=== PATIENT | female | born 1990 | race Caucasian/White ===

== ENCOUNTER 2016-10-24 15:26 | Emergency (ER) | payer MEDICAID ==
[~2016-10-24] VITALS: Ht 170.2 cm; Wt 104.3 kg
[~2016-10-24 15:26] MED LIST: PREN1CAP20 PO
--- NOTE | 2016-10-24 15:28 | PD ---
HPI . Labor Chief Complaint: labor Time Seen by Provider: 15:28 Travel History International Travel<30 days: No Contact w/Intl Traveler<30days: No History of Present Illness HPI The patient presents stating that she is 36 weeks and thinks that she is in labor. She reports contractions about every 20-30 minutes. She is concerned that her water broke about an hour and a half to 2 hours ago. She states that this was not like her previous experiences with her other 2 pregnancies though. She states that there was not a gush of fluid. She just had some wetness in her panties. She subsequently presented here for evaluation. PFSH Past Medical History Hx Anticoagulant Therapy: No Anxiety: Yes Depression: Yes Cancer: No Cardiovascular Problems: No Diabetes: No Diminished Hearing: No Endocrine: No Gastrointestinal Disorders: No Genitourinary: No Headaches: No Immune Disorder: No Implanted Vascular Access Dvce: No Musculoskeletal: No Neurologic: No Psychiatric: No Reproductive: No Respiratory: No Seizures: No : 3 Para: 2 Miscarriage: 1 : 0 Past Surgical History Other Surgery: No Social History Alcohol Use: Yes (occasianal; last unknown ) Tobacco Use: Yes Substance Use: Yes (meth--last used this am (pt. thinks); marajuana occasional (can't remember)) Allergies-Medications (Allergen,Severity, Reaction): Coded Allergies: Tramadol (Verified Adverse Reaction, Unknown, upset stomach, 08/27/16) pt. denies being allergic to tramadol Reported Meds & Prescriptions Reported Meds & Active Scripts Active Prenate Mini 18-0.6-0.4-350 mg ( W/O Vit A W/ Fe Carbo) 1 Cap Cap 1 Tab PO DAILY Review of Systems Except as stated in HPI: all other systems reviewed are Neg Genitourinary: Positive: Other (contractions) Physical Exam Narrative GENERAL: Awake and alert and in no acute distress. SKIN: Warm and dry. HEAD: Atraumatic. Normocephalic. EYES: Pupils equal and round. NECK: Trachea midline. CARDIOVASCULAR: Regular rate and rhythm. RESPIRATORY: No accessory muscle use. ABDOMEN: Gravid. heart tones are present by Doppler. : Cervix is high and thin but not completely effaced. Cervix is less than fingertip open. The baby's head can be felt but is not engaged. Litmus paper stays yellow. MUSCULOSKELETAL: No obvious deformities. No edema. NEUROLOGICAL: Awake and alert. No obvious cranial nerve deficits. Motor grossly within normal limits. Normal speech. PSYCHIATRIC: Appropriate mood and affect; insight and judgment normal. Data Data Last Documented VS Vital Signs Date Time Temp Pulse Resp B/P Pulse Ox O2 Delivery O2 Flow Rate FiO2 10/24/16 15:30 98.2 121 20 143/76 98 MDM Medical Decision Making Medical Screen Exam Complete: Yes Emergency Medical Condition: Yes Differential Diagnosis Differential diagnosis includes [place] contractions versus early active labor Narrative Course Patient presents to us for possible labor. She will be transferred to [facility]. Physician Communication Physician Communication Spoke with the OB ER doctor who is expecting the patient. Diagnosis Primary Impression: Uterine contractions during Condition: Stable Charity Ashford MD October 24, 2016 15:28
[2016-10-24 15:30] VITALS: BP 143/76; PULSE 121; RESP 20; TEMP 98.2; O2SAT 98
--- NOTE | 2016-10-24 18:06 | PD ---
HPI Chief Complaint Contractions, back pain and leakage of fluid Date Seen: October 24, 2016 Travel History International Travel<30 Days: No Contact w/Intl Traveler<30Days: No Known Affected Area: No History of Present Illness HPI 26y/o at 36w1d who presents to the [facility] with reports of ?leakage of fluid at noon and contractions at that time. She denies vaginal bleeding with reports of active movements. care with [facility] no records available for review. Care complicated by: 1. 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 h/o at 36w 3. Tobacco Abuse 10-15 cigarettes per day 4. Para: 2 : 3 History Past Medical History Narrative Medical H/o IVDA, no documentation of HepC status, pt reports negative Obstetric History Obstetric History 06/08/2011 40w1d Male "Manfred" 7lb7oz 07/17/2013 36w + Male "Nicolas" 6lb3oz Past Surgical History Narrative Surgical 2016 Laparoscopic Cholecystectomy Social History Alcohol Use: No Tobacco Use: Yes (10-15 cigarettes a day) Substance Abuse: No (H/o IVDA) Allergies-Medications (Allergen,Severity, Reaction): Coded Allergies: Tramadol (Verified Adverse Reaction, Unknown, upset stomach, 08/27/16) pt. denies being allergic to tramadol Home Meds Active Scripts W/O Vit A W/ Fe Carbo (Prenate Mini 18-0.6-0.4-350 mg)1 Cap Cap1 Tab PO DAILY #30 BOTTLE Ref 11 Prov:Blanca Garcia 07/02/16 Review of Systems Except as stated in HPI: all other systems reviewed are Neg Physical Exam Vital Signs Date Time Temp Pulse Resp B/P Pulse Ox O2 Delivery O2 Flow Rate FiO2 10/24/16 15:30 98.2 121 20 143/76 98 Narrative GENERAL: Well-nourished, well-developed patient. SKIN: Warm and dry. HEAD: Normocephalic and atraumatic. EYES: No scleral icterus. No injection or drainage. ENT: No nasal drainage noted. Mucous membranes pink. Airway patent. NECK: Supple, trachea midline. No JVD. CARDIOVASCULAR: Regular rate and rhythm without murmurs, gallops, or rubs. RESPIRATORY: Breath sounds equal bilaterally. No accessory muscle use. BREASTS: Bilateral exam showed no masses , no retractions, no nipple discharge. ABDOMEN/GI: Abdomen soft, non-tender, bowel sounds present, no rebound, no guarding Gravid to 37 weeks size GENITOURINARY: External Genitalia: intact and normal in appearance BUS glands: [-] VE: 2/50/-3 Uterine Contractions: irregular FHT's: Category: 1 EXTREMITIES: No cyanosis or edema. BACK: Nontender without obvious deformity. No CVA tenderness. NEUROLOGICAL: Awake and alert. Motor and sensory grossly within normal limits. Five out of 5 muscle strength in all muscle groups. Normal speech. Data Data Vital Signs Reviewed: Yes Labs Amnisure Negative [facility] Medical Record Reviewed: No Interpretation(s) 26y/o at 36w1d who presents for evaluation of PTL with PPROM. -amnisure negative -reassuring status -no evidence of PTL Plan -d/c home -f/u for PNC as scheduled Diagnosis Diagnosis: Primary Impression: Uterine contractions during Disposition: 01 DISCHARGE HOME Condition: Stable Patient Instructions: Abdominal Pain in (ED) Elizabeth Khalil MD October 24, 2016 18:06
== END 2016-10-24 18:10 | disposition home or self-care (01) ==
LOC: PHED 15:26 → HOBED 18:10
DX: O26.93 Pregnancy related conditions, unspecified, third trimester (principal); R10.84 Generalized abdominal pain; Z3A.36 36 weeks gestation of pregnancy
CPT/HCPCS: 84112; 99282

== ENCOUNTER 2016-11-03 16:07 | Emergency (ER) | payer MEDICAID ==
[~2016-11-03] VITALS: Ht 170.2 cm; Wt 106.1 kg
--- NOTE | 2016-11-03 16:41 | PD ---
HPI Chief Complaint Non-reactive NST. Date Seen: Nov 03, 2016 (Doretha Talavera MD R2) Travel History International Travel<30 Days: No Contact w/Intl Traveler<30Days: No (Doretha Talavera MD R2) History of Present Illness HPI Patient is a 26 year old at 37-4/7 weeks gestation who presents today for non-reactive NST. She was seen by An Rowland today and found to have a non- reactive NST before being sent here. She also notes a vaginal discharge described as clear/whitish that has been getting heavier. She denies any vaginal bleeding or gush or leaking of fluid. She is having intermittent contractions. She has had decreased movement for the past 2 days. (Doretha Talavera MD R2) History Past Medical History Medical History: Denies Significant Hx (Doretha Talavera MD) Obstetric History Obstetric History s/p x2 one at term and one at 36 weeks gestation (Doretha Talavera MD R2) Past Surgical History Narrative Surgical Cholecystectomy 2015 (Doretha Talavera MD R2) Family History Family History: Negative (Doretha Talavera MD R2) Social History Alcohol Use: No Tobacco Use: Yes (1ppd) Substance Abuse: No (Doretha Talavera MD R2) Allergies-Medications (Allergen,Severity, Reaction): Coded Allergies: Tramadol (Verified Adverse Reaction, Unknown, upset stomach, 11/03/16) pt. denies being allergic to tramadol Home Meds Active Scripts W/O Vit A W/ Fe Carbo (Prenate Mini 18-0.6-0.4-350 mg)1 Cap Cap1 Tab PO DAILY #30 BOTTLE Ref 11 Prov:Blanca Garcia 07/02/16 Review of Systems Except as stated in HPI: all other systems reviewed are Neg General / Constitutional: No: Fever, Chills Eyes: No: Visual changes HENT: No: Headaches Cardiovascular: No: Chest Pain or Discomfort Respiratory: No: Short of Breath Gastrointestinal: No: Nausea, Vomiting, Abdominal Pain Genitourinary: Discharge, No: Pelvic Pain, Vaginal Bleeding Neurologic: No: Headache Psychiatric: No: Substance Abuse (Sadaf,Doretha E MD R2) Physical Exam Narrative GENERAL: Well-nourished, well-developed patient. SKIN: Warm and dry. HEAD: Normocephalic and atraumatic. EYES: No scleral icterus. No injection or drainage. ENT: No nasal drainage noted. Mucous membranes pink. Airway patent. NECK: Supple, trachea midline. No JVD. CARDIOVASCULAR: Regular rate and rhythm without murmurs, gallops, or rubs. RESPIRATORY: Breath sounds equal bilaterally. No accessory muscle use. ABDOMEN/GI: Abdomen soft, non-tender, bowel sounds present, no rebound, no guarding Gravid to 37 weeks size GENITOURINARY: External Genitalia: intact and normal in appearance Cervix: Posterior Dilatation: 2cm Presentation: Vertex Membranes: intact Uterine Contractions: irregular FHT's: Category: II Baseline: 140 Reactive: - Variability: moderate Decels: none EXTREMITIES: No cyanosis or edema. BACK: Nontender without obvious deformity. No CVA tenderness. NEUROLOGICAL: Awake and alert. Motor and sensory grossly within normal limits. Normal speech. (Doretha Talavera MD R2) Data Data Vital Signs Reviewed: Yes (Doretha Talavera MD R2) MDM Medical Record Reviewed: Yes Narrative Course / MDM 26 year old at 37-4/7 weeks gestation. 1. IUP- Category I tracing. 2. Decreased movement- Non-reactive NST, will obtain BPP for further evaluation. keysha Vargas Addendum: BPP 01/06. [place] 15.9. Will discharge patient home. (Doretha Talavera MD R2) Attending Attestation The exam, history, and the medical decision-making described in the above note were completed with the assistance of the resident provider. I reviewed and agree with the findings presented. I attest that I had a [id number] encounter with the patient on the same day, and personally performed and documented my assessment and findings in the medical record. FHR strip and BPP reviewed. 01/08 BPP. discussed s/sx labor and FKC with patient. Keep scheduled OB appt. (Rosaura Vargas MD) Diagnosis Diagnosis: Primary Impression: Decreased movement Qualified Code: O36.8130 - Decreased movement, third trimester, not applicable or unspecified fetus Additional Impression: Non-reactive NST (non-stress test) Disposition: DISCHARGE HOME Condition: Stable Patient Instructions: General Instructions, Early Labor Signs (ED) Doretha Talavera MD R2 Nov 03, 2016 16:40 Rosaura Vargas MD Nov 03, 2016 17:07
== END 2016-11-03 17:23 | disposition home or self-care (01) ==
LOC: HOBED 16:07
DX: O36.8130 Decreased fetal movements, third trimester, not applicable or unspecified (principal); Z3A.37 37 weeks gestation of pregnancy
CPT/HCPCS: 59025; 76816; 76819

== ENCOUNTER 2016-11-08 19:30 | Emergency (ER) | payer MEDICAID ==
--- NOTE | 2016-11-08 20:21 | PD ---
HPI Chief Complaint contractions Date Seen: Nov 08, 2016 Time Seen: 20:11 Travel History International Travel<30 Days: No Contact w/Intl Traveler<30Days: No Known Affected Area: No History of Present Illness HPI 26y/o 3 para 2 at 38-2/7 weeks' gestation with an VITALIY of 11/20/16 who reports contractions. She denies any bleeding, leakage of fluid or discharge. She reports she was 2 cm dilated in the office this week. She has had an uncomplicated and [facility] Para: 2 : 3 History Past Medical History Narrative Medical History of IV drug use with none during this Smoker Past Surgical History Surgical History: No Previous Surgery Family History Family History: Negative Social History Alcohol Use: No Tobacco Use: Yes Substance Abuse: Yes (history of polysubstance abuse with none reported this .) Allergies-Medications (Allergen,Severity, Reaction): Coded Allergies: Tramadol (Verified Adverse Reaction, Unknown, upset stomach, 11/03/16) pt. denies being allergic to tramadol Home Meds Active Scripts W/O Vit A W/ Fe Carbo (Prenate Mini 18-0.6-0.4-350 mg)1 Cap Cap1 Tab PO DAILY #30 BOTTLE Ref 11 Prov:Blanca Garcia 07/02/16 Review of Systems Except as stated in HPI: all other systems reviewed are Neg Physical Exam Narrative GENERAL: Well-nourished, well-developed patient. SKIN: Warm and dry. HEAD: Normocephalic and atraumatic. EYES: No scleral icterus. No injection or drainage. ENT: No nasal drainage noted. Mucous membranes pink. Airway patent. NECK: Supple, trachea midline. No JVD. CARDIOVASCULAR: Regular rate and rhythm without murmurs, gallops, or rubs. RESPIRATORY: Breath sounds equal bilaterally. No accessory muscle use. ABDOMEN/GI: Abdomen soft, non-tender, bowel sounds present, no rebound, no guarding Gravid to [-] weeks size Fundal Height: [37-] GENITOURINARY: External Genitalia: intact and normal in appearance BUS glands: [-] Cervix: [-2] Dilatation: [-] Effacement: [50-] Station: [-2-] Presentation: [-v] Membranes: [intact ] Uterine Contractions: [mild irreg-] FHT's: Category: [-1] Baseline: [-] Reactive: [-] Variability: [-] Decels: [-] EXTREMITIES: No cyanosis or edema. BACK: Nontender without obvious deformity. No CVA tenderness. NEUROLOGICAL: Awake and alert. Motor and sensory grossly within normal limits. Five out of 5 muscle strength in all muscle groups. Normal speech. Data Data Vital Signs Reviewed: Yes MDM Medical Record Reviewed: Yes Narrative Course / MDM Assessment: 38+ week intrauterine with irregular contractions without labor Plan: Labor precautions were reviewed and she was instructed to continue her care as scheduled. Diagnosis Diagnosis: Primary Impression: Uterine contractions during Disposition: DISCHARGE HOME Condition: Good Jose Armando Estrella MD Nov 08, 2016 20:21
== END 2016-11-08 20:39 | disposition home or self-care (01) ==
LOC: HOBED 19:30
DX: O62.2 Other uterine inertia (principal); Z3A.38 38 weeks gestation of pregnancy; Z87.891 Personal history of nicotine dependence
CPT/HCPCS: 99281

== ENCOUNTER 2016-11-12 19:30 | Emergency (ER) | payer MEDICAID ==
--- NOTE | 2016-11-12 20:31 | PD ---
HPI Chief Complaint Headache and increased movement Concerned about previous pelvic exam Date Seen: Nov 12, 2016 Time Seen: 20:25 Travel History International Travel<30 Days: No Contact w/Intl Traveler<30Days: No Known Affected Area: No History of Present Illness HPI 26-year-old who is at 38 weeks and 6 days comes in today with several vague complaints. She states that she's had a headache for several days, mild, but persistent. He does not take any medication for it. She was seen in the office yesterday and has not had any proteinuria and states that she's had normal blood pressures. She also states that she's had less movement this when compared to her last but then today had increased movement so she was concerned. Additionally she had a pelvic examination yesterday that showed her cervix was 1 cm where is previously she was 2 cm and she was concerned regarding the examination. Patient denies vaginal bleeding denies contractions. Patient denies abdominal pain or visual changes Para: 2 : 3 History Past Medical History Medical History: Denies Significant Hx Obstetric History Obstetric History Spontaneous vaginal delivery 2 Past Surgical History Narrative Surgical Cholecystectomy Family History Family History: Negative Social History Alcohol Use: No Tobacco Use: No Substance Abuse: No Allergies-Medications (Allergen,Severity, Reaction): Coded Allergies: Tramadol (Verified Adverse Reaction, Unknown, upset stomach, 11/11/16) pt. denies being allergic to tramadol Home Meds Active Scripts W/O Vit A W/ Fe Carbo (Prenate Mini 18-0.6-0.4-350 mg)1 Cap Cap1 Tab PO DAILY #30 BOTTLE Ref 11 Prov:Blanca Garcia 07/02/16 Review of Systems Except as stated in HPI: all other systems reviewed are Neg Physical Exam Narrative GENERAL: Well-nourished, well-developed patient. SKIN: Warm and dry. HEAD: Normocephalic and atraumatic. EYES: No scleral icterus. No injection or drainage. ENT: No nasal drainage noted. Mucous membranes pink. Airway patent. NECK: Supple, trachea midline. No JVD. CARDIOVASCULAR: Regular rate and rhythm without murmurs, gallops, or rubs. RESPIRATORY: Breath sounds equal bilaterally. No accessory muscle use. BREASTS: Bilateral exam showed no masses , no retractions, no nipple discharge. ABDOMEN/GI: Abdomen soft, non-tender, bowel sounds present, no rebound, no guarding Gravid to [-39] weeks size Fundal Height: [-] GENITOURINARY: External Genitalia: intact and normal in appearance BUS glands: [Normal-] Cervix: [-Posterior] Dilatation: [1-] Effacement: [-50] Station: [-3-] Presentation: [-Vertex] Membranes: [intact ] Uterine Contractions: [-Absent] FHT's: Category: [-1] Baseline: [145-] Reactive: [Moderate-] Variability: [-Moderate] Decels: [-Absent] EXTREMITIES: No cyanosis or edema. BACK: Nontender without obvious deformity. No CVA tenderness. NEUROLOGICAL: Awake and alert. Motor and sensory grossly within normal limits. Five out of 5 muscle strength in all muscle groups. Normal speech. Data Data Vital Signs Reviewed: Yes MDM Medical Record Reviewed: Yes Plan 26-year-old at 38 weeks and 6 days Category 1 heart rate tracing Cervix is unchanged from her examination yesterday Patient with negative proteinuria from her exam yesterday, and is normotensive. Recommended hydration Tylenol as necessary for her headache with a follow-up to her OB provider as already scheduled Diagnosis Diagnosis: Primary Impression: Headache in , antepartum Additional Impressions: Pelvic pain affecting 38 weeks gestation of Disposition: 01 DISCHARGE HOME Ellyn Milligan MD Nov 12, 2016 20:31
== END 2016-11-12 20:45 | disposition home or self-care (01) ==
LOC: HOBED 19:30
DX: O26.893 Other specified pregnancy related conditions, third trimester (principal); R10.2 Pelvic and perineal pain; Z3A.38 38 weeks gestation of pregnancy
CPT/HCPCS: 99282

== ENCOUNTER 2016-11-18 18:03 | Inpatient (IN) | payer MEDICAID ==
[2016-11-18] VITALS (16 sets, daily range): BP systolic 106–132; BP diastolic 57–90; PULSE 72–97; RESP 16–18; O2SAT 100
[2016-11-18] MEDS ORDERED: LACTATED RINGER'S 1000 ML INJ 1,000 ML IV SCH (19:13)
[2016-11-18] MEDS ORDERED: LACTATED RINGER'S 1000 ML INJ 1,000 ML IV PRN (19:13)
[2016-11-18] MEDS ORDERED: OXYTOCIN 30 UNITS-500ML PREMIX 500 ML IV ONE (19:15)
[2016-11-18] MEDS ORDERED: CITRIC ACID-SODIUM CITRATE LIQ 30 ML UDC PO SCH (19:15)
[2016-11-18] MEDS ORDERED: LIDOCAINE HCL 1% 50 ML VIAL INFIL PRN (19:15)
[2016-11-18] MEDS ORDERED: ONDANSETRON HCL 4 MG/2 ML VIAL IV PRN (19:15)
[2016-11-18] MEDS ORDERED: MINERAL OIL 10 ML VIAL TOPICAL PRN (19:15)
[2016-11-18] MEDS ORDERED: SODIUM CHLORID 0.9% 500 ML INJ 500 ML IV PRN (19:15)
[2016-11-18] MEDS ORDERED: LIDOCAINE HCL 1% 50 ML VIAL I-DERMAL PRN (19:15)
[2016-11-18] MEDS ORDERED: OXYTOCIN 30 UNITS-500ML PREMIX 500 ML IV SCH (19:30)
[2016-11-18] MEDS ORDERED: SODIUM CHLOR 0.9% 1000 ML INJ 1,000 ML IV PRN (19:33)
--- NOTE | 2016-11-18 19:40 | PD ---
HPI Chief Complaint contractions, bleeding, decreased FM Date Seen: Nov 18, 2016 Time Seen: 19:00 Travel History International Travel<30 Days: No Contact w/Intl Traveler<30Days: No Known Affected Area: No History of Present Illness HPI Pt is a 26 y/o with IUP 39.5 wks presents with c/o contractions, bleeding, decreased FM. Pt states she was seen at [facility] today and was 4 cm. She states after appt she has had bright red bleeding with wiping. She has also had contractions every 3-4 min and decreased FM. Para: 2 : 3 History Past Medical History Narrative Medical history of drug abuse, states clean for 1 year gallbladder Obstetric History Obstetric History FTSVD x 2, denies complications with or delivery Past Surgical History Narrative Surgical cholecystectomy Family History Family History: Negative Social History Alcohol Use: No Tobacco Use: Yes (1 ppd) Substance Abuse: No (history of drug abuse ) Allergies-Medications (Allergen,Severity, Reaction): Coded Allergies: Tramadol (Verified Adverse Reaction, Unknown, upset stomach, 11/11/16) pt. denies being allergic to tramadol Home Meds Active Scripts W/O Vit A W/ Fe Carbo (Prenate Mini 18-0.6-0.4-350 mg)1 Cap Cap1 Tab PO DAILY #30 BOTTLE Ref 11 Prov:Blanca Garcia 07/02/16 Review of Systems General / Constitutional: Weight Gain Eyes: No: Diploplia, Blurred Vision, Visual changes, Pain, Photophobia, Other HENT: No: Headaches, Vertigo, Dental Difficulties, Lightheadedness, Other Cardiovascular: No: Irregular Rhythm, Chest Pain or Discomfort, Palpitations, Tachycardia, Syncope, Varicosities, Edema, Cyanosis, Other Respiratory: No: Cough, Short of Breath, Wheezing, Other Gastrointestinal: No: Nausea, Vomiting, Diarrhea, Abdominal Pain, Hematemesis, Hematochezia, Constipation, Changes in Bowel Habits, Indigestion, Loss of Appetite, Other Genitourinary: No: Urgency, Frequency, Dysuria, Nocturia, Hematuria, Decreased Urinary Output, Oliguria, Hesitancy, Dribbling, Incontinence, Pelvic Pain, Dyspareunia, Discharge, Menorrhagia, Vaginal Bleeding, Other Musculoskeletal: Edema Skin: No Rash, No Itching, No Dryness, No Lumps, No Change in Pigmentation, No Change in Nails, No Alopecia, No Lesions, No Breast Lumps, No Breast Tenderness , No Breast Swelling, No Other Neurologic: No: Weakness, Dizziness, Syncope, Focal Abnormalities, Coordination Problem, Headache, Slurred Speech, Seizures, Other Psychiatric: No: Anxiety, Depression, Suicidal Ideations, Disorder of Thought, Mood Disorder, Substance Abuse, Homicidal Ideation, Other Endocrine: No: Heat Intolerance, Cold Intolerance, Polydipsia, Polyuria, Other Hematologic/Lymphatic: No Easy Bruising, No Lymph Node Enlargement, No Other Physical Exam 128/78, 131, 18, 98.7 Narrative GENERAL: Well-nourished, well-developed patient. SKIN: Warm and dry. HEAD: Normocephalic and atraumatic. EYES: No scleral icterus. No injection or drainage. ENT: No nasal drainage noted. Mucous membranes pink. Airway patent. NECK: Supple, trachea midline. No JVD. CARDIOVASCULAR: Regular rate and rhythm without murmurs, gallops, or rubs. RESPIRATORY: Breath sounds equal bilaterally. No accessory muscle use. ABDOMEN/GI: Abdomen soft, non-tender, bowel sounds present, no rebound, no guarding Gravid GENITOURINARY: External Genitalia: intact and normal in appearance BUS glands: [wnl] Cervix: soft Dilatation: 5 Effacement: 70 Station: -3 Presentation: [ceph] Membranes:intact Uterine Contractions: [q 3-8 min] FHT's: Category: 1 Baseline: 140 Reactive: yes Variability: mod Decels: no EXTREMITIES: No cyanosis or edema. BACK: Nontender without obvious deformity. No CVA tenderness. NEUROLOGICAL: Awake and alert. Motor and sensory grossly within normal limits. Five out of 5 muscle strength in all muscle groups. Normal speech. Data Data Vital Signs Reviewed: Yes Orders Admit To Inpatient (11/18/16 ) Code Status (11/18/16 19:13) Vital Signs (Adult) .Per protocol (11/18/16 19:13) Heart (11/18/16 19:13) Amnioinfusion (11/18/16 19:13) Urinary Catheter Management .ONCE (11/18/16 19:13) Diet Npo (11/19/16 Breakfast) Lactated Ringer's 1000 Ml Inj (Lr 1000 M (11/18/16 19:13) Lactated Ringer's 1000 Ml Inj (Lr 1000 M (11/18/16 19:13) Sodium Chlorid 0.9% 500 Ml Inj (Ns 500 M (11/18/16 19:15) Sodium Chlor 0.9% 1000 Ml Inj (Ns 1000 M (11/18/16 19:33) Lidocaine 1% Inj (50 Ml) (Xylocaine 1% I (11/18/16 19:15) Citric Acid-Sodium Citrate Liq (Bicitra (11/18/16 19:15) Ondansetron Inj (Zofran Inj) (11/18/16 19:15) Fentanyl Inj (Fentanyl Inj) (11/18/16 19:15) Fentanyl Inj (Fentanyl Inj) (11/18/16 19:15) Complete Blood Count With Diff (11/18/16 19:13) Hold Clot (11/18/16 19:13) Abo/Rh Blood Type (11/18/16 19:13) Urinalysis - C+S If Indicated (11/18/16 19:13) Resp Oxygen Non Rebreathe Mask (11/18/16 ) ^ Epidural / Intrathecal Infus (11/18/16 19:13) Oxytocin 30 Units-500ml Premix (Pitocin (11/18/16 19:15) Lidocaine 1% Inj (50 Ml) (Xylocaine 1% I (11/18/16 19:15) Light Mineral Oil (Muri-Lube Oil) (11/18/16 19:15) Inpatient Certification (11/18/16 ) MDM Medical Record Reviewed: Yes (GBS neg) Narrative Course / MDM 26 y/o with IUP at 39.5 wks in early labor, multiparous with favorable cervix will admit for delivery pitocin augmentation if needed GBS negative Rosaura Vargas MD Nov 18, 2016 19:40
--- NOTE | 2016-11-18 19:47 | HHI.HP ---
History & Physical H&P HPI Chief Complaint contractions, bleeding, decreased FM Date Seen: Nov 18, 2016 Time Seen: 19:00 Travel History International Travel<30 Days: No Contact w/Intl Traveler<30Days: No Known Affected Area: No History of Present Illness HPI Pt is a 26 y/o with IUP 39.5 wks presents with c/o contractions, bleeding, decreased FM. Pt states she was seen [facility] today and was 4 cm. She states after appt she has had bright red bleeding with wiping. She has also had contractions every 3-4 min and decreased FM. Para: 2 : 3 History Past Medical History Narrative Medical history of drug abuse, states clean for 1 year gallbladder Obstetric History Obstetric History FTSVD x 2, denies complications with or delivery Past Surgical History Narrative Surgical cholecystectomy Family History Family History: Negative Social History Alcohol Use: No Tobacco Use: Yes (1 ppd) Substance Abuse: No (history of drug abuse ) Allergies-Medications (Allergen,Severity, Reaction): Coded Allergies: Tramadol (Verified Adverse Reaction, Unknown, upset stomach, 11/11/16) pt. denies being allergic to tramadol Home Meds Active Scripts W/O Vit A W/ Fe Carbo (Prenate Mini 18-0.6-0.4-350 mg)1 Cap Cap1 Tab PO DAILY #30 BOTTLE Ref 11 Prov:Blanca Garcia 07/02/16 Review of Systems General / Constitutional: Weight Gain Eyes: No: Diploplia, Blurred Vision, Visual changes, Pain, Photophobia, Other HENT: No: Headaches, Vertigo, Dental Difficulties, Lightheadedness, Other Cardiovascular: No: Irregular Rhythm, Chest Pain or Discomfort, Palpitations, Tachycardia, Syncope, Varicosities, Edema, Cyanosis, Other Respiratory: No: Cough, Short of Breath, Wheezing, Other Gastrointestinal: No: Nausea, Vomiting, Diarrhea, Abdominal Pain, Hematemesis, Hematochezia, Constipation, Changes in Bowel Habits, Indigestion, Loss of Appetite, Other Genitourinary: No: Urgency, Frequency, Dysuria, Nocturia, Hematuria, Decreased Urinary Output, Oliguria, Hesitancy, Dribbling, Incontinence, Pelvic Pain, Dyspareunia, Discharge, Menorrhagia, Vaginal Bleeding, Other Musculoskeletal: Edema Skin: No Rash, No Itching, No Dryness, No Lumps, No Change in Pigmentation, No Change in Nails, No Alopecia, No Lesions, No Breast Lumps, No Breast Tenderness , No Breast Swelling, No Other Neurologic: No: Weakness, Dizziness, Syncope, Focal Abnormalities, Coordination Problem, Headache, Slurred Speech, Seizures, Other Psychiatric: No: Anxiety, Depression, Suicidal Ideations, Disorder of Thought, Mood Disorder, Substance Abuse, Homicidal Ideation, Other Endocrine: No: Heat Intolerance, Cold Intolerance, Polydipsia, Polyuria, Other Hematologic/Lymphatic: No Easy Bruising, No Lymph Node Enlargement, No Other Physical Exam 128/78, 131, 18, 98.7 Narrative GENERAL: Well-nourished, well-developed patient. SKIN: Warm and dry. HEAD: Normocephalic and atraumatic. EYES: No scleral icterus. No injection or drainage. ENT: No nasal drainage noted. Mucous membranes pink. Airway patent. NECK: Supple, trachea midline. No JVD. CARDIOVASCULAR: Regular rate and rhythm without murmurs, gallops, or rubs. RESPIRATORY: Breath sounds equal bilaterally. No accessory muscle use. ABDOMEN/GI: Abdomen soft, non-tender, bowel sounds present, no rebound, no guarding Gravid GENITOURINARY: External Genitalia: intact and normal in appearance BUS glands: [wnl] Cervix: soft Dilatation: 5 Effacement: 70 Station: -3 Presentation: [ceph] Membranes:intact Uterine Contractions: FHT's: Category: 1 Baseline: 140 Reactive: yes Variability: mod Decels: no EXTREMITIES: No cyanosis or edema. BACK: Nontender without obvious deformity. No CVA tenderness. NEUROLOGICAL: Awake and alert. Motor and sensory grossly within normal limits. Five out of 5 muscle strength in all muscle groups. Normal speech. Data Data Vital Signs Reviewed: Yes Orders Admit To Inpatient (11/18/16 ) Code Status (11/18/16 19:13) Vital Signs (Adult) .Per protocol (11/18/16 19:13) Heart (11/18/16 19:13) Amnioinfusion (11/18/16 19:13) Urinary Catheter Management .ONCE (11/18/16 19:13) Diet Npo (11/19/16 Breakfast) Lactated Ringer's 1000 Ml Inj (Lr 1000 M (11/18/16 19:13) Lactated Ringer's 1000 Ml Inj (Lr 1000 M (11/18/16 19:13) Sodium Chlorid 0.9% 500 Ml Inj (Ns 500 M (11/18/16 19:15) Sodium Chlor 0.9% 1000 Ml Inj (Ns 1000 M (11/18/16 19:33) Lidocaine 1% Inj (50 Ml) (Xylocaine 1% I (11/18/16 19:15) Citric Acid-Sodium Citrate Liq (Bicitra (11/18/16 19:15) Ondansetron Inj (Zofran Inj) (11/18/16 19:15) Fentanyl Inj (Fentanyl Inj) (11/18/16 19:15) Fentanyl Inj (Fentanyl Inj) (11/18/16 19:15) Complete Blood Count With Diff (11/18/16 19:13) Hold Clot (11/18/16 19:13) Abo/Rh Blood Type (11/18/16 19:13) Urinalysis - C+S If Indicated (11/18/16 19:13) Resp Oxygen Non Rebreathe Mask (11/18/16 ) ^ Epidural / Intrathecal Infus (11/18/16 19:13) Oxytocin 30 Units-500ml Premix (Pitocin (11/18/16 19:15) Lidocaine 1% Inj (50 Ml) (Xylocaine 1% I (11/18/16 19:15) Light Mineral Oil (Muri-Lube Oil) (11/18/16 19:15) Inpatient Certification (11/18/16 ) MDM Medical Record Reviewed: Yes (GBS neg) Narrative Course / MDM 26 y/o with IUP at 39.5 wks in early labor, multiparous with favorable cervix will admit for delivery pitocin augmentation if needed GBS negative Rosaura Vargas MD Nov 18, 2016 19:40 <Electronically signed by Rosaura Vargas MD> 11/18/161939 Rosaura Vargas MD Nov 18, 2016 19:47
[2016-11-18 19:54] LABS: AUTOMATED NEUTROPHIL # 8.9 TH/MM3 (1.8-7.7); BASOPHIL % 0.3 % (0.0-2.0); EOSINOPHIL # 0.1 TH/MM3 (0-0.4); EOSINOPHIL % 0.9 % (0.0-4.0); HEMATOCRIT 29.6 % (35.0-46.0); HEMO FLAGS DIFF FINAL; LYMPH % 20.7 % (9.0-44.0); LYMPHOCYTE # 2.5 TH/MM3 (1.0-4.8); MEAN CELL VOLUME 85.6 FL (80.0-100.0); MEAN CORPUSCULAR HEMOGLOBIN 29.3 PG (27.0-34.0); MEAN CORPUSCULAR HGB CONC 34.3 % (32.0-36.0); MONO % 5.6 % (0.0-8.0); NEUT % 72.5 % (16.0-70.0); PLATELET COUNT 159 TH/MM3 (150-450); RED BLOOD COUNT 3.46 MIL/MM3 (4.00-5.30); RED CELL DISTRIBUTION WIDTH 14.2 % (11.6-17.2); WHITE BLOOD COUNT 12.3 TH/MM3 (4.0-11.0)
[2016-11-18] MEDS ORDERED: ACETAMINOPHEN 325 MG TAB PO PRN (20:45)
[2016-11-18 20:51] LABS: AMPHETAMINE, URINE NEG (NEG); BARBITURATES, URINE NEG (NEG); COCAINE, URINE NEG (NEG)
[2016-11-18 21:34] LABS: BACTERIA, URINE RARE /hpf; BLOOD, URINE MOD (NEG); COMMENT (UR) CULTURE INDICATED; CULTURE IF INDICATED CULTURE INDICATED; GLUCOSE,URINE TRACE mg/dL (NEG); HYALINE CAST, URINE 1 /lpf (RARE); KETONE, URINE TRACE mg/dL (NEG); MUCUS URINE FEW /lpf (OCC); NITRITE,URINE NEG (NEG); PH, URINE 5.5 (5.0-8.5); SQUAMOUS EPITHELIAL CELL URINE 4 /hpf (0-5); URINE COLOR YELLOW (YELLW/STRAW)
--- NOTE | 2016-11-18 22:44 | PD.LABORPN ---
Subjective Subjective 26 y/o with IUP at 39.5 wks in early labor, multiparous with favorable cervix, admitted for delivery, pitocin augmentation started, GBS negative. AROM discussed with patient. Patient consented. Baby head ballotable. AROM performed with clear ROM. Objective Vital Signs Vital Signs Date Time Temp Pulse Resp B/P Pulse Ox O2 Delivery O2 Flow Rate FiO2 11/18/16 22:05 18 11/18/16 22:03 93 125/69 Objective Pelvic Exam: Cervix: midposition Dilatation: [5cm] Effacement: [60%] Station: [-2] Presentation: [vertex] Membranes: [artificially ruptured with clear, copious, odorless fluid] Uterine Contractions: [q7min] FHT's: Category: [category I] Baseline: [135] Reactive: [reactive] Variability: [moderate] Decels: [none] Assessment/Plan Problem List: (1) Labor and delivery, indication for care (2) Labor and delivery indication for care or intervention Assessment and Plan 26 y/o with IUP at 39.5 wks in early labor, multiparous with favorable cervix, admitted for delivery, pitocin augmentation started, GBS negative. AROM discussed with patient. Patient consented. Baby head ballotable. AROM performed with clear ROM. -continue pitocin -anticipate -anticipate epidural Pt s/d/w Dr. Vargas. AROM performed by Dr. Villatoro. Scooter Forman MD R1 Nov 18, 2016 22:44
[2016-11-18] MEDS ORDERED: fentaNYL 2MCG-BUPIV 0.125% INJ 100 ML ONE (22:55)
[2016-11-19] VITALS (16 sets, daily range): BP systolic 78–117; BP diastolic 57–93; PULSE 76–100; RESP 16–18; TEMP 98.1–98.3
[2016-11-19] MEDS ORDERED: ALUMINUM/MAGNESIUM/SIMETH 30 ML CUP PO PRN (00:15)
[2016-11-19] MEDS ORDERED: oxyCODONE/ACETAMINOPHEN 5 MG/325 MG TAB PO PRN (00:15)
[2016-11-19] MEDS ORDERED: SODIUM CHLORIDE 0.9% FLUSH 10 ML FLUSH IV FLUSH PRN (00:15)
[2016-11-19] MEDS ORDERED: ONDANSETRON ODT 4 MG TAB PO PRN (00:15)
[2016-11-19] MEDS ORDERED: ZOLPIDEM TARTRATE 5 MG TAB PO PRN (00:15)
--- NOTE | 2016-11-19 00:16 | PD.OB.DELI ---
Delivery Date: Nov 18, 2016 Anesthesia: Epidural Episiotomy: None Vaginal Delivery: Normal Presentation: Occiput anterior Nuchal Cord: None Delayed cord clamping (45 sec): Yes : Male One Minute : 9 Five Minute : 9 Weight: 7lb 4oz Placenta: Spontaneous delivery, Intact, 3 vessel cord Laceration: Vaginal laceration (superficial periurethral lacerations hemostatic without intervention) Additional Information Performed by Dr. Forman. Assisted by Dr. Villatoro. Supervised by Dr. Vargas. (Scooter Forman MD R1) Attestation I was present and directly supervised the entire delivery procedure. (Rosaura Vargas MD) Scooter Forman MD R1 Nov 19, 2016 00:16 Rosaura Vargas MD Nov 19, 2016 01:10
[2016-11-19] MEDS: IBUPROFEN 600 MG TAB PO PRN ×4 (02:29→22:25)
[2016-11-19] MEDS: oxyCODONE/ACETAMINOPHEN 5 MG/325 MG TAB PO PRN ×4 (05:11→18:25)
--- NOTE | 2016-11-19 06:53 | HHI.OB ---
Subjective Post Day: 0 Remarks day #0. AFVSS overnight. Decreased lochia. Denies dysuria. No breast tenderness. She is feeding the baby via breast and formula. No nausea or vomiting. Ambulating well. Denies calf pain or shortness of breath. Otherwise, she is doing well this morning and has no other concerns. (Lulú Choe MD R1) Objective Vitals/I&O Vital Signs Date Time Temp Pulse Resp B/P Pulse Ox O2 Delivery O2 Flow Rate FiO2 11/19/16 03:07 105/58 11/19/16 03:07 98.1 80 16 11/19/16 02:45 98.3 11/19/16 02:45 18 11/19/16 02:35 77 102/60 11/19/16 02:00 18 11/19/16 01:51 89 113/64 11/19/16 01:45 87 107/57 11/19/16 01:45 18 11/19/16 01:35 89 101/75 11/19/16 01:31 100 78/58 11/19/16 01:28 16 11/19/16 01:16 84 100/66 11/19/16 00:55 18 11/19/16 00:52 80 117/72 11/19/16 00:30 18 11/19/16 00:30 98.3 11/19/16 00:16 91 114/93 11/19/16 00:00 18 11/18/16 23:50 88 11/18/16 23:50 100 11/18/16 23:45 18 11/18/16 23:45 86 128/79 11/18/16 23:41 85 116/63 11/18/16 23:35 87 124/77 11/18/16 23:30 72 132/90 11/18/16 23:30 16 11/18/16 23:25 96 112/66 11/18/16 23:20 91 109/68 11/18/16 23:19 78 106/57 11/18/16 23:08 89 114/79 11/18/16 23:05 97 100 11/18/16 23:00 92 100 11/18/16 22:58 74 108/66 11/18/16 22:51 18 11/18/16 22:50 82 116/75 11/18/16 22:05 18 11/18/16 22:03 93 125/69 Objective Remarks GENERAL: Well-nourished, well-developed female in no apparent distress. CARDIOVASCULAR: Regular rate and rhythm without murmurs, gallops, or rubs. RESPIRATORY: Breath sounds equal bilaterally. No accessory muscle use. ABDOMEN/GI: Abdomen soft, non-tender. Fundus: Firm, non-tender at umbilicus. GENITOURINARY: Light to moderate bleeding. EXTREMITIES: No cyanosis or edema, non-tender, without signs of DVT. Medications and IVs Current Medications Medications (Trade) Dose Ordered Sig/Mike Route Start Time Stop Time Status Last Admin (NS Flush) 2 ml BID IV FLUSH 11/19/16 09:00 (NS Flush) 2 ml UNSCH PRN IV FLUSH 11/19/16 00:15 (Tylenol) 650 mg Q4H PRN PO 11/19/16 00:15 (Motrin) 600 mg Q6H PRN PO 11/19/16 00:15 11/19/16 02:29 (Percocet 5-325 Mg) 1 tab Q4H PRN PO 11/19/16 00:15 (Percocet 5-325 Mg) 2 tab Q4H PRN PO 11/19/16 00:15 11/19/16 05:11 (Americaine 20% Top Spr) 1 spray Q4H PRN TOPICAL 11/19/16 00:15 (Tucks Pads) 1 applic QID PRN TOPICAL 11/19/16 00:15 (Bonny-Colace) 2 tab Q12H PRN PO 11/19/16 00:15 (Ambien) 5 mg HS PRN PO 11/19/16 00:15 (M-M-R Ii Inj) 0.5 ml ONCE ONCE SQ 11/19/16 16:00 11/19/16 16:01 (Boostrix Inj) 0.5 ml ONCE ONCE IM 11/19/16 16:00 11/19/16 16:01 (Mag-Al Plus Susp Liq) 15 ml Q8H PRN PO 11/19/16 00:15 (Zofran Odt) 4 mg Q6H PRN PO 11/19/16 00:15 (Lulú Choe MD R1) Assessment/Plan Problem List: (1) Labor and delivery, indication for care (2) Labor and delivery indication for care or intervention Assessment and Plan 26 y/o G3 P now 3 female who is PPD #1 status post . care with [facility]W. care: -Continue routine care. -Tylenol and Motrin PRN pain. -Encouraged OOB. Advised pelvic rest for 6 wks. - control options to be discussed -Anticipate discharge 12 days. Will discuss with Dr. Vargas. (Lulú Choe MD R1) Attending Attestation The exam, history, and the medical decision-making described in the above note were completed with the assistance of the resident provider. I reviewed and agree with the findings presented. I attest that I had a [id number] encounter with the patient on the same day, and personally performed and documented my assessment and findings in the medical record. (Rosaura Vargas MD) Lulú Choe MD R1 Nov 19, 2016 06:53 Rosaura Vargas MD Nov 19, 2016 08:49
[2016-11-19] MEDS ORDERED: SODIUM CHLORIDE 0.9% FLUSH 10 ML FLUSH IV FLUSH SCH (09:00)
[2016-11-19] MEDS: DOCUSATE SODIUM 50 MG/SENNA 8.6 MG TAB PO PRN (09:38)
[2016-11-19] MEDS: WITCH HAZEL 50%/GLYCERIN 12.5% 40 PAD JAR TOPICAL PRN ×2 (09:38→20:42)
[2016-11-19] MEDS: BENZOCAINE 20% TOPICAL SPRAY 60 ML CAN TOPICAL PRN ×2 (09:38→20:45)
[2016-11-19] MEDS ORDERED: DIPHTH/TETANUS/ACEL PERTUSSIS (BOOSTER) 0.5 ML VIAL/PFS IM ONE (16:00)
[2016-11-19] MEDS ORDERED: MEASLES, MUMPS, RUBELLA VACCINE 0.5 ML VIAL SQ ONE (16:00)
[2016-11-19] MEDS: ACETAMINOPHEN 325 MG TAB PO PRN (22:25)
[2016-11-20] MEDS: ACETAMINOPHEN 325 MG TAB PO PRN (05:18)
[2016-11-20] MEDS: IBUPROFEN 600 MG TAB PO PRN (05:18)
--- NOTE | 2016-11-20 07:01 | HHI.OB ---
Subjective Post Day: 1 Remarks day #1. AFVSS overnight. Decreased lochia. Denies dysuria. No breast tenderness. She is feeding the baby via breast and formula. No nausea or vomiting. Ambulating well. Denies calf pain or shortness of breath. Otherwise, she is doing well this morning and has no other concerns. She wants to go home today. (Lulú Choe MD R1) Objective Vitals/I&O Vital Signs Date Time Temp Pulse Resp B/P Pulse Ox O2 Delivery O2 Flow Rate FiO2 11/19/16 19:06 98.1 76 16 103/68 Objective Remarks GENERAL: Well-nourished, well-developed female in no apparent distress. CARDIOVASCULAR: Regular rate and rhythm without murmurs, gallops, or rubs. RESPIRATORY: Breath sounds equal bilaterally. No accessory muscle use. ABDOMEN/GI: Abdomen soft, non-tender. Fundus: Firm, non-tender at umbilicus. GENITOURINARY: Light to moderate bleeding. EXTREMITIES: No cyanosis or edema, non-tender, without signs of DVT. Medications and IVs Current Medications Medications (Trade) Dose Ordered Sig/Mike Route Start Time Stop Time Status Last Admin (NS Flush) 2 ml BID IV FLUSH 11/19/16 09:00 (NS Flush) 2 ml UNSCH PRN IV FLUSH 11/19/16 00:15 (Tylenol) 650 mg Q4H PRN PO 11/19/16 00:15 11/20/16 05:18 (Motrin) 600 mg Q6H PRN PO 11/19/16 00:15 11/20/16 05:18 (Percocet 5-325 Mg) 1 tab Q4H PRN PO 11/19/16 00:15 (Percocet 5-325 Mg) 2 tab Q4H PRN PO 11/19/16 00:15 11/19/16 18:25 (Americaine 20% Top Spr) 1 spray Q4H PRN TOPICAL 11/19/16 00:15 11/19/16 20:45 (Tucks Pads) 1 applic QID PRN TOPICAL 11/19/16 00:15 11/19/16 20:42 (Bonny-Colace) 2 tab Q12H PRN PO 11/19/16 00:15 11/19/16 09:38 (Ambien) 5 mg HS PRN PO 11/19/16 00:15 (Mag-Al Plus Susp Liq) 15 ml Q8H PRN PO 11/19/16 00:15 (Zofran Odt) 4 mg Q6H PRN PO 11/19/16 00:15 (Lulú Choe MD R1) Assessment/Plan Problem List: (1) Labor and delivery, indication for care (2) Labor and delivery indication for care or intervention Assessment and Plan 26 y/o G3 P now 3 female who is PPD #1 status post . care with CFW. care: -Continue routine care. -Tylenol and Motrin PRN pain. -Encouraged OOB. Advised pelvic rest for 6 wks. - control options discussed, patient is undecided -Anticipate discharge today Will discuss with Dr. Khalil (Lulú Choe MD R1) Attending Attestation Agree with above. D/c home today. (Elizabeth Khalil MD) Lulú Choe MD R1 Nov 20, 2016 07:01 Elizabeth Khalil MD Nov 20, 2016 08:38
[2016-11-20 07:56] VITALS: BP 108/70; PULSE 70; RESP 16; TEMP 98
[2016-11-20] MEDS ORDERED: ACET1TAB86 PO (08:42)
[2016-11-20] MEDS ORDERED: IBUP-232 PO (08:42)
--- NOTE | 2016-11-20 08:43 | HHI.DCPOC ---
Discharge Care Plan Diagnosis: (1) Normal vaginal delivery Report Symptoms to Your Doctor -Temperature above 100.5 degrees -Redness, of incision or excessive or foul smelling drainage -Unusual pain or calf pain -Increased vaginal bleeding -Painful or difficulty urinating -Feelings of extreme sadness or anxiety after 2 weeks Goals to Promote Your Health * To prevent worsening of your condition and complications * To maintain your health at the optimal level Directions to Meet Your Goals Take your medications as prescribed Follow your dietary instruction Follow activity as directed Ensure plenty of rest for recovery Drink fluids for hydration Keep your appointments as scheduled Take your immunizations and boosters as scheduled If your symptoms worsen call your PCP, if no PCP go to Urgent Care Center or Emergency Room Smoking is Dangerous to Your Health. Avoid second hand smoke Call the 24-hour crisis hotline for domestic abuse at Lulú Choe MD R1 Nov 20, 2016 08:43
[2016-11-20] MEDS: oxyCODONE/ACETAMINOPHEN 5 MG/325 MG TAB PO PRN (09:00)
[2016-11-20] MEDS: DOCUSATE SODIUM 50 MG/SENNA 8.6 MG TAB PO PRN (09:01)
[2016-11-22 09:11] LABS: BATH SALTS (MDPV) UR NEG (NEG); ECSTASY (MDMA) UR NEG (NEG); GABAPENTIN UR NEG (NEG); HEROIN (6-ACETYLMORPHINE) UR NEG (NEG); HYDROMORPHONE U NEG (NEG); K2 SPICE UR NEG (NEG); OBMETHADONE UR NEG (NEG); OXYCODONE (PERCODAN) NEG (NEG); PHENCYCLIDINE URINE NEG (NEG)
== END 2016-11-20 12:47 | disposition home or self-care (01) | DRG 774 ==
LOC: HOBED 18:03 → H2EA 19:45 → H1EA 11-19 02:45
PROVIDERS: ADMIT Obstetrics & Gynecology; ATTEND Obstetrics & Gynecology
PROC: 10907ZC Drainage of Amniotic Fluid, Therapeutic from Products of Conception, Via Natural or Artificial Opening (ICD-10-PCS; 2016-11-18)
PROC: 10E0XZZ Delivery of Products of Conception, External Approach (ICD-10-PCS; principal; 2016-11-19)
DX: O36.8130 Decreased fetal movements, third trimester, not applicable or unspecified (principal); O46.93 Antepartum hemorrhage, unspecified, third trimester; F17.210 Nicotine dependence, cigarettes, uncomplicated; O99.334 Smoking (tobacco) complicating childbirth; O70.0 First degree perineal laceration during delivery; Z37.0 Single live birth; Z3A.39 39 weeks gestation of pregnancy
CPT/HCPCS: 80307; 81001; 85025; 86900; 86901; 87086; 99285; G0481; J2590

== ENCOUNTER → 2017-11-24 | Outpatient (CLI) | payer MEDICAID ==
[~2017-11-24] MED LIST changes: +ACET325T15 PO; +IBUP-232 PO
== END ==
LOC: HPND 09:40
PROVIDERS: ATTEND Obstetrics & Gynecology
DX: O09.32 Supervision of pregnancy with insufficient antenatal care, second trimester (principal); O98.512 Other viral diseases complicating pregnancy, second trimester; O99.332 Smoking (tobacco) complicating pregnancy, second trimester
CPT/HCPCS: 76811